=== PATIENT | male | born 1960 | race Caucasian/White ===

== ENCOUNTER 2021-12-07 19:46 | Emergency (ER) | payer BC ==
[2021-12-07] MEDS: Acetaminophen 325 MG Tab PO ONE (20:37)
[2021-12-07 20:52] LABS: CHLORIDE,CL 99 mmol/L (98-107); SODIUM,NA 137 mmol/L (136-145)
[2021-12-07 20:55] LABS: ANION GAP 21.5 mmol/L (5-15); ESTIMATED GFR 68 mL/min (>=60)
[2021-12-07 21:01] LABS: CORONAVIRUS COVID-19 NAA NEGATIVE (NEGATIVE)
[2021-12-07] MEDS: Take Home: metroNIDAZOLE 500 MG Tab, 4 Tab Pack PO ONE (21:19)
== END 2021-12-07 21:26 | disposition home or self-care (01) ==
LOC: VM.ED 19:46
DX: R19.7 Diarrhea, unspecified (principal); I10 Essential (primary) hypertension; E11.9 Type 2 diabetes mellitus without complications; Z20.822 Contact with and (suspected) exposure to COVID-19
CPT/HCPCS: 0240U; 36415; 80053; 81001; 83735; 85025; 86140; 87045; 87046; 87493; 99284; A9270-GY

== ENCOUNTER 2022-11-07 12:35 | Day surgery (SDC) | payer BC ==
[~2022-11-07 12:35] MED LIST: Lactated Ringers 1,000 ML IV SCH; Sodium Chloride 0.9% 10 ML Syringe FLUSH PRN
[2022-11-07] MEDS ORDERED: fentaNYL 100 MCG/2 ML SDV ONE (13:12)
[2022-11-07] MEDS ORDERED: Propofol 200 MG/20 ML SDV ONE ×2 (13:12→14:24)
== END 2022-11-07 15:50 | disposition home or self-care (01) ==
LOC: VM.SDS 12:35
PROVIDERS: ATTEND Family Medicine
DX: D12.2 Benign neoplasm of ascending colon (principal); D12.3 Benign neoplasm of transverse colon; D12.5 Benign neoplasm of sigmoid colon; K57.30 Diverticulosis of large intestine without perforation or abscess without bleeding; K64.4 Residual hemorrhoidal skin tags; K21.9 Gastro-esophageal reflux disease without esophagitis; Z87.19 Personal history of other diseases of the digestive system; K29.80 Duodenitis without bleeding; K29.70 Gastritis, unspecified, without bleeding; K31.7 Polyp of stomach and duodenum; K44.9 Diaphragmatic hernia without obstruction or gangrene; Q00-Q99 Congenital malformations, deformations and chromosomal abnormalities; E78.5 Hyperlipidemia, unspecified; I10 Essential (primary) hypertension; C91.10 Chronic lymphocytic leukemia of B-cell type not having achieved remission; R73.01 Impaired fasting glucose; M15.9 Polyosteoarthritis, unspecified; Z79.84 Long term (current) use of oral hypoglycemic drugs; Z79.899 Other long term (current) drug therapy; Z79.82 Long term (current) use of aspirin; Z87.891 Personal history of nicotine dependence
CPT/HCPCS: 00813; J2704; J3010; J7120

== ENCOUNTER 2024-07-27 18:23 | Emergency (ER) | payer MEDICARE, OTHER ==
[2024-07-27] MEDS: Lactated Ringers 1,000 ML IV SCH (18:53)
[2024-07-27] MEDS: Ondansetron 4 MG/2 ML SDV IVPUSH ONE (18:53)
[2024-07-27] MEDS: LORazepam 2 MG/ML SDV IVPUSH ONE ×2 (18:55→19:38)
[2024-07-27 18:58] LABS: BASOPHILS PERCENT AUTO 0.1 % (0.2-1.2); EOSINOPHILS PERCENT AUTO 0.2 % (0.0-4.0); HEMATOCRIT 45.5 % (40.0-52.0); HEMOGLOBIN 15.9 g/dL (14.0-18.0); IMMATURE GRAN ABSOLUTE AUTO 0.04 x10^3/uL (0.00-0.07); LYMPHOCYTES PERCENT AUTO 37.1 % (25.0-50.0); MEAN CORPUSCULAR HEMOGLOBIN 32.6 pg (26.0-32.0); MEAN CORPUSCULAR HGB CONC 34.9 g/dL (32.0-36.0); MEAN CORPUSCULAR VOLUME 93.2 fL (78.0-93.0); MONOCYTES ABSOLUTE AUTO 0.3 x10^3/uL (0.0-0.8); MONOCYTES PERCENT AUTO 3.7 % (2.0-11.0); NEUTROPHILS ABSOLUTE AUTO 4.8 x10^3/uL (1.8-7.7); NEUTROPHILS PERCENT AUTO 58.4 % (50.0-80.0); PLATELET COUNT,PLT 128 x10^3/uL (130-400); RED BLOOD CELL COUNT 4.88 x10^6/uL (4.5-6.0); WHITE BLOOD CELL COUNT,WBC 8.2 x10^3/uL (4.0-10.0)
[2024-07-27 19:13] LABS: A/G RATIO 1.17; ALANINE AMINOTRANSFERASE,ALT 55 U/L (16-63); ALBUMIN 4.1 g/dL (3.4-5.0); ALKALINE PHOSPHATASE 155 U/L (46-116); ASPARTATE AMNIOTRANSFERASE,AST 59 U/L (15-37); BLOOD UREA NITROGEN,BUN 17 mg/dL (7-18); CALCIUM 9.3 mg/dL (8.5-10.1); CARBON DIOXIDE,CO2 16 mmol/L (21-32); CHLORIDE,CL 94 mmol/L (98-107); CREATININE 1.3 mg/dL (0.70-1.30); GLUCOSE RANDOM 169 mg/dL (70-99); POTASSIUM,K 3.7 mmol/L (3.5-5.1); PROTEIN TOTAL,TP 7.6 g/dL (6.4-8.2); SODIUM,NA 136 mmol/L (136-145)
[2024-07-27 19:16] LABS: ACETAMINOPHEN 0 ug/ml (10-30); ANION GAP 29.7 mmol/L (5-15); ESTIMATED GFR 61 mL/min (>=60); ETHANOL BLOOD MEDICAL < 3 mg/dL (0-3)
[2024-07-27 20:12] LABS: AMPHETAMINE, URINE NEGATIVE (NEGATIVE); BARBITUATES,URINE NEGATIVE (NEGATIVE); BENZODIAZEPINES,URINE NEGATIVE (NEGATIVE); BUPRENORPHINE,URINE NEGATIVE (NEGATIVE); COCAINE,URINE NEGATIVE (NEGATIVE); MARIJUANA,URINE NEGATIVE (NEGATIVE); METHADONE,URINE NEGATIVE (NEGATIVE); METHAMPHETAMINE,URINE NEGATIVE (NEGATIVE); METHYLENEDIOXYMETHAMP,UR NEGATIVE (NEGATIVE); OPIATES,URINE NEGATIVE (NEGATIVE); OXYCODONE,URINE POSITIVE (NEGATIVE); PHENCYCLIDINE,URINE NEGATIVE
[2024-07-27] MEDS: Take Home: LORazepam 0.5 MG Tab, 2 Tab Pack PO ONE (21:58)
== END 2024-07-27 21:50 | disposition home or self-care (01) ==
LOC: VM.ED 18:23
DX: F10.130 Alcohol abuse with withdrawal, uncomplicated (principal); E11.9 Type 2 diabetes mellitus without complications; I10 Essential (primary) hypertension; E78.00 Pure hypercholesterolemia, unspecified; Z79.51 Long term (current) use of inhaled steroids; Z79.82 Long term (current) use of aspirin; Z79.899 Other long term (current) drug therapy; Z79.84 Long term (current) use of oral hypoglycemic drugs
CPT/HCPCS: 80053; 80143; 80179; 80305-QW; 80307; 83735; 84484; 85025; 93005; 93010; 96361; 96374; 96375; 96376; 99284; 99284-25; A9270-GY; J2060; J2405; J7120